=== PATIENT | female | born 1985 | race Caucasian/White ===

== ENCOUNTER 2017-09-29 15:54 | Inpatient (IN) | payer SELFPAY ==
[2017-09-29] MEDS ORDERED: SODIUM CHLORIDE 0.9% 1000ML 1,000 ML IV ONE (16:33)
[2017-09-29 16:53] LABS: BASOPHILS % (AUTO) 0 % (0-3); EOSINOPHILS % (AUTO) 1 % (0-9); HEMATOCRIT 36 % (35-47); HEMOGLOBIN 11.9 gm/dl (12.0-15.5); LYMPHOCYTES % (AUTO) 8.9 % (10-50); MEAN CORPUSCULAR HEMOGLOBIN 27.6 pg (27.0-32.0); MEAN CORPUSCULAR HGB CONC 33.2 gm/dl (32.0-36.0); MEAN CORPUSCULAR VOLUME 83 fL (81-99); MONOCYTES % (AUTO) 6.8 % (0-12); NEUTROPHILS % (AUTO) 82.7 % (37-80)
[2017-09-29 17:01] LABS: APPEARANCE,URINE Slightly Cloudy; BILIRUBIN,URINE NEGATIVE (NEGATIVE); COLOR,URINE Yellow; GLUCOSE, URINE (UA) NEGATIVE (NEGATIVE); KETONES,URINE TRACE (NEGATIVE); LEUKOCYTE ESTERASE ,URINE NEGATIVE (NEGATIVE); NITRATE,URINE NEGATIVE (NEGATIVE); OCCULT BLOOD,URINE 3+ (NEG-TRACE); PH,URINE 6.5; UROBILINOGEN,URINE 0.2 (0.2-1.0 EU)
[2017-09-29 17:02] LABS: CALCIUM 8.7 mg/dl (8.5-10.1); CARBON DIOXIDE 27.6 mEq/L (21-32); CREATININE 0.88 mg/dl (0.60-1.00); POTASSIUM 3.9 mMol/L (3.5-5.1)
[2017-09-29 17:58] LABS: BACTERIA 1+ (< 1+); CRYSTALS NEGATIVE (0-3 AVE/HPF); EPITHELIAL CELLS 0-4 (SQUAMOUS); WBC,URINE 0-1 (0-5AV/HPF)
[2017-09-29] MEDS ORDERED: KETOROLAC TROMETHAMINE 30 MG/ML SOL IV ONE (18:11)
[2017-09-29] MEDS ORDERED: KETOROLAC TROMETHAMINE 30 MG/ML SOL ONE (18:13)
[2017-09-29] MEDS: SODIUM CHLORIDE 0.9% FLUSH 10 ML SOL IV PRN ×2 (18:18→19:55)
[2017-09-29] MEDS ORDERED: CLINDAMYCIN 150 MG/ML 900 MG in SODIUM CHLORIDE 0.9% 100 ML 100 ML IV ONE ×2 (19:51→21:36)
[2017-09-29] MEDS ORDERED: MORPHINE SULFATE 10 MG/ML SOL IV ONE (19:51)
[2017-09-29] MEDS ORDERED: AMPICILLIN 1 GM PDS 2 GM in SODIUM CHLORIDE 0.9% 100 ML 100 ML IV ONE ×2 (19:52→21:37)
[2017-09-29] MEDS ORDERED: MORPHINE SULFATE 10 MG/ML SOL ONE (19:53)
[2017-09-29] MEDS ORDERED: SODIUM CHLORIDE 0.9% IV ONE (20:03)
[2017-09-29] MEDS ORDERED: GENTAMICIN SULFATE IV ONE (20:03)
[2017-09-29] MEDS ORDERED: AMPICILLIN 1 GM PDS ONE (20:08)
[2017-09-29] MEDS ORDERED: GENTAMICIN SULFATE 40 MG/ML SOL ONE (20:08)
[2017-09-29] MEDS ORDERED: CLINDAMYCIN 150 MG/ML SOL ONE (20:09)
[2017-09-29] MEDS ORDERED: SODIUM CHLORIDE 0.9% 50 ML 25 ML IV PRN (21:37)
[2017-09-29] MEDS: SODIUM CHLORIDE 0.9% FLUSH 10 ML SOL IV SCH (23:30)
[2017-09-29] MEDS: SODIUM CHLORIDE 0.9% 1000ML 1,000 ML IV SCH (23:30)
[2017-09-30] MEDS: MORPHINE SULFATE 10 MG/ML SOL IV PRN ×4 (00:08→21:43)
[2017-09-30] MEDS: SODIUM CHLORIDE 0.9% 1000ML 1,000 ML IV SCH ×3 (03:25→10:34)
[2017-09-30] MEDS ORDERED: CLINDAMYCIN 150 MG/ML SOL ONE ×3 (03:26→20:03)
[2017-09-30] MEDS ORDERED: SODIUM CHLORIDE 0.9% 100 ML 100 ML IV ONE ×5 (03:26→20:03)
[2017-09-30] MEDS: CLINDAMYCIN 150 MG/ML 900 MG in SODIUM CHLORIDE 0.9% 100 ML 100 ML IV SCH ×3 (03:43→20:44)
[2017-09-30] MEDS ORDERED: AMPICILLIN 1 GM PDS ONE ×2 (04:26→10:15)
[2017-09-30] MEDS: AMPICILLIN 1 GM PDS 2 GM in SODIUM CHLORIDE 0.9% 100 ML 100 ML IV SCH ×3 (05:21→16:57)
[2017-09-30] MEDS: SODIUM CHLORIDE 0.9% FLUSH 10 ML SOL IV SCH ×6 (05:30→20:45)
[2017-09-30 07:43] VITALS: RESP 16
[2017-09-30 07:43] LABS: BASOPHILS % (AUTO) 1 % (0-3); EOSINOPHILS % (AUTO) 2 % (0-9); HEMATOCRIT 31 % (35-47); HEMOGLOBIN 10.1 gm/dl (12.0-15.5); LYMPHOCYTES % (AUTO) 12.4 % (10-50); MEAN CORPUSCULAR HEMOGLOBIN 27.6 pg (27.0-32.0); MEAN CORPUSCULAR HGB CONC 32.9 gm/dl (32.0-36.0); MEAN CORPUSCULAR VOLUME 84 fL (81-99); MONOCYTES % (AUTO) 10.1 % (0-12); NEUTROPHILS % (AUTO) 75.2 % (37-80)
[2017-09-30 07:48] LABS: CALCIUM 7.5 mg/dl (8.5-10.1); CARBON DIOXIDE 26.2 mEq/L (21-32); CREATININE 0.81 mg/dl (0.60-1.00); POTASSIUM 3.6 mMol/L (3.5-5.1)
[2017-09-30] MEDS ORDERED: GENTAMICIN SULFATE IV SCH ×2 (09:00→20:00)
[2017-09-30] MEDS ORDERED: SODIUM CHLORIDE 0.9% IV SCH ×2 (09:00→20:00)
[2017-09-30] MEDS: ONDANSETRON 4 MG ODT BU PRN ×2 (12:32→21:43)
[2017-09-30 16:06] VITALS: BP 108/72; PULSE 80; TEMP 98.2; O2SAT 97
[2017-09-30] MEDS ORDERED: ACETAMINOPHEN 325 MG PO PRN (17:11)
[2017-09-30] MEDS ORDERED: ACETAMINOPHEN 325 MG ONE (17:18)
== END 2017-09-30 21:53 | disposition home or self-care (01) | DRG 759 ==
LOC: ED 15:54 → ACUTE CARE 20:27 → UNDOADMIN 20:27 → ACUTE CARE 22:15
PROVIDERS: ADMIT Family Medicine; ATTEND Family Medicine
DX: N70.93 Salpingitis and oophoritis, unspecified (principal); R10.31 Right lower quadrant pain
CPT/HCPCS: 36415; 74178; 80048; 81001; 84703; 85025; 87210; 96365; 96366; 96374; 96375; 99070; 99222; 99238; 99285; J0290; J1580; J1885; J2270; J3490; Q9967; A9270-GY